=== PATIENT | female | born 1955 | race Two or more races ===

== ENCOUNTER 2018-02-05 03:12 | Emergency (ER) | payer OTHER, MEDICAID ==
[~2018-02-05] VITALS: Ht 160 cm; Wt 59.0 kg
[2018-02-05 05:27] LABS: Basophils # (auto) 0 uL; Basophils % (auto) 0.2 % (0.0-2.0); Eosinophils # (auto) 0 uL; Hematocrit 47.6 % (36.0-46.0); Hemoglobin 16.2 g/dL (12.2-16.2); Lymphocytes # (auto) 1.5 uL; Lymphocytes % (auto) 14.5 % (10.0-50.0); Mean Corpuscular Hemoglobin 31.1 pg (28.0-32.0); Mean Corpuscular Volume 91.5 fL (80.0-100.0); Monocytes # (auto) 0.6 uL; Monocytes % (auto) 5.7 % (0.0-12.0); Neutrophils # (auto) 8.4 uL; Neutrophils % (auto) 79.6 % (37.0-80.0); Platelet Count (auto) 316 10^3/uL (140-450); Red Cell Distribution Width 14.1 % (11.8-14.3); White Blood Cell 10.6 10^3/uL (4.4-10.8)
[2018-02-05 05:41] LABS: Acetaminophen < 2.0 ug/mL (10-30); Albumin 4.6 g/dL (3.4-5.0); Anion Gap 11 (5-15); Aspartate Aminotransferase 25 U/L (15-37); BUN/Creatinine Ratio 15.6; Blood Alcohol < 3.0 mg/dL (0-5); Blood Urea Nitrogen 17 mg/dL (7-18); Calcium 9.4 mg/dL (8.5-10.1); Carbon Dioxide 23 mmol/L (21-32); Chloride 105 mmol/L (98-107); GFR African American 65 mL/min; GFR Non-African American 54 mL/min; Glucose 134 mg/dL (74-106); Magnesium 2.7 mg/dL (1.6-2.6); Potassium 3.2 mmol/L (3.5-5.1); Salicylate < 1.7 mg/dL (2.8-20.0); Sodium 139 mmol/L (136-145)
[2018-02-05 05:44] LABS: Alanine Aminotransferase 27 U/L (13-56); Alkaline Phosphatase 85 U/L (45-117); Bilirubin, Total 0.6 mg/dL (0.2-1.0); Total Protein 8.6 g/dL (6.4-8.2)
[2018-02-05 08:29] LABS: Alcohol, Urine < 3.0 mg/dL (0-5); Amphetamine Screen, Urine NEGATIVE (NEGATIVE); Barbiturate Scree,Urine NEGATIVE (NEGATIVE); Benzodiazephine Screen, Urine POSITIVE (NEGATIVE); Cannabinoid Screen, Urine NEGATIVE (NEGATIVE); Cocaine Screen, Urine NEGATIVE (NEGATIVE); Opiate Scree,Urine NEGATIVE (NEGATIVE); Phencyclidine Screen, Urine NEGATIVE (NEGATIVE)
[2018-02-05 08:37] LABS: Urine Bacteria NONE SEEN /hpf (None Seen); Urine Blood 1+ /uL (Negative); Urine Hyaline Cast MANY /lpf (0 - 2); Urine Mucus MANY (None Seen); Urine Specific Gravity 1.018 (1.001-1.035); Urine WBC 15 /hpf (0 - 5)
[2018-02-05] MEDS ORDERED: NITROFURANTOIN (MONO) 100 mg CAP PO ONE (11:00)
[2018-02-06] MEDS ORDERED: amLODIPine BESYLATE 5 MG TAB PO SCH ×2 (10:00→10:15)
[2018-02-06] MEDS ORDERED: amLODIPine BESYLATE 5 MG TAB ONE (10:11)
[2018-02-06] MEDS: ALPRAZolam 0.5 MG TAB PO PRN ×2 (10:20→15:37)
[2018-02-06] MEDS ORDERED: cloNIDine HCL 0.1 MG TAB ONE (13:44)
[2018-02-06] MEDS ORDERED: cloNIDine HCL 0.1 MG TAB PO ONE (13:45)
[2018-02-06] MEDS ORDERED: POTASSIUM CHL 10% (20 MEQ/15ML) 15ml ORAL SOLN PO ONE (16:30)
[2018-02-06] MEDS ORDERED: NITROFURANTOIN (MONO) 100 mg CAP PO ONE (16:30)
[2018-02-06] MEDS ORDERED: LISINOPRIL 20 MG TAB PO ONE (16:30)
[2018-02-06 19:33] VITALS: BP 131/84
== END 2018-02-06 19:51 | disposition short-term general hospital (02) ==
LOC: EDUNIT# 03:12 → EDBD 03:12 → ER 03:15
DX: F20.9 Schizophrenia, unspecified (principal); F32.9 Major depressive disorder, single episode, unspecified; N39.0 Urinary tract infection, site not specified; E87.6 Hypokalemia; F29 Unspecified psychosis not due to a substance or known physiological condition; I10 Essential (primary) hypertension; Z59.0 Homelessness
CPT/HCPCS: 36415; 71046; 80053; 80307; 80320; 80329; 81001; 82962; 83735; 85025; 93005

== ENCOUNTER 2018-06-20 00:59 | Observation (INO) | payer OTHER, MEDICAID ==
[~2018-06-20] VITALS: Ht 172.7 cm; Wt 64.9 kg
[2018-06-20 02:10] LABS: Basophils # (auto) 0 uL; Basophils % (auto) 0.5 % (0.0-2.0); Eosinophils # (auto) 0 uL; Eosinophils % (auto) 0.5 % (0.0-7.0); Hematocrit 43.1 % (36.0-46.0); Hemoglobin 14.5 g/dL (12.2-16.2); Lymphocytes # (auto) 1.7 uL; Lymphocytes % (auto) 25.5 % (10.0-50.0); Mean Corpuscular Hemoglobin 30.1 pg (28.0-32.0); Mean Corpuscular Hgb Conc. 33.8 g/dL (32.0-36.0); Mean Corpuscular Volume 89.1 fL (80.0-100.0); Monocytes # (auto) 0.6 uL; Monocytes % (auto) 8.2 % (0.0-12.0); Neutrophils # (auto) 4.4 uL; Neutrophils % (auto) 65.3 % (37.0-80.0); Platelet Count (auto) 220 10^3/uL (140-450); Red Blood Cells 4.83 10^6/uL (4.0-5.20); Red Cell Distribution Width 13.1 % (11.8-14.3); White Blood Cell 6.7 10^3/uL (4.4-10.8)
[2018-06-20 02:27] LABS: Albumin 3.7 g/dL (3.4-5.0); Amylase 31 U/L (25-115); Anion Gap 11 (5-15); BUN/Creatinine Ratio 9.4; Blood Urea Nitrogen 6 mg/dL (7-18); Calcium 7.9 mg/dL (8.5-10.1); Carbon Dioxide 23 mmol/L (21-32); Chloride 107 mmol/L (98-107); GFR African American 120 mL/min; GFR Non-African American 99 mL/min; Glucose 98 mg/dL (74-106); Lipase 144 U/L (73-393); Magnesium 2.1 mg/dL (1.6-2.6); Potassium 3.2 mmol/L (3.5-5.1); Sodium 141 mmol/L (136-145)
[2018-06-20] MEDS ORDERED: SODIUM CHLORIDE 0.9% 500 ML IV ONE (02:30)
[2018-06-20] MEDS ORDERED: NALBUPHINE HCL 10 MG/1ml INJECTION IV ONE (02:30)
[2018-06-20] MEDS ORDERED: ONDANSETRON HCL 4 MG/2 ML VIAL IV ONE (02:30)
[2018-06-20 02:32] LABS: Alanine Aminotransferase 19 U/L (13-56); Alkaline Phosphatase 66 U/L (45-117); Aspartate Aminotransferase 19 U/L (15-37); Bilirubin, Total 0.8 mg/dL (0.2-1.0)
[2018-06-20 06:19] LABS: Urine WBC None Seen /hpf (0 - 5)
[2018-06-20 06:24] LABS: Urine Bacteria FEW /hpf (None Seen); Urine Blood TRACE /uL (Negative)
[2018-06-20 07:53] VITALS: BP 157/89
[2018-06-20] MEDS ORDERED: POTASSIUM EFFERVESENT TAB 25 MEQ PO ONE (08:15)
== END 2018-06-20 08:44 | disposition home or self-care (01) | DRG 392 ==
LOC: EDBD 00:59 → EDSEX 00:59 → ER 00:59 → OVERFLOW 01:00 → ER 08:44
PROVIDERS: ADMIT Emergency Medicine; ATTEND Emergency Medicine
DX: R10.13 Epigastric pain (principal); K59.00 Constipation, unspecified; E87.6 Hypokalemia; I10 Essential (primary) hypertension; E78.5 Hyperlipidemia, unspecified; F32.9 Major depressive disorder, single episode, unspecified; E11.9 Type 2 diabetes mellitus without complications
CPT/HCPCS: 36415; 74176; 80053; 81001; 82150; 83690; 83735; 84484; 85025; 93005; 96361; 96374; 96375; 99285; G0378; J2300; J2405; J7040

== ENCOUNTER 2018-07-31 20:31 | Observation (INO) | payer MEDICAID, OTHER ==
[~2018-07-31] VITALS: Ht 160 cm; Wt 59.0 kg
[2018-07-31] MEDS: SODIUM CHLORIDE 0.9% 1,000 ML IV ONE (21:06)
[2018-07-31 21:33] LABS: Basophils # (auto) 0 uL; Basophils % (auto) 0.3 % (0.0-2.0); Eosinophils # (auto) 0 uL; Eosinophils % (auto) 0.2 % (0.0-7.0); Hematocrit 43.2 % (36.0-46.0); Hemoglobin 14.6 g/dL (12.2-16.2); Lymphocytes # (auto) 1.9 uL; Lymphocytes % (auto) 22.8 % (10.0-50.0); Mean Corpuscular Hemoglobin 30.3 pg (28.0-32.0); Mean Corpuscular Hgb Conc. 33.9 g/dL (32.0-36.0); Mean Corpuscular Volume 89.4 fL (80.0-100.0); Monocytes # (auto) 0.6 uL; Monocytes % (auto) 7.2 % (0.0-12.0); Neutrophils # (auto) 5.9 uL; Neutrophils % (auto) 69.5 % (37.0-80.0); Nucleated Red Blood Cells % 0.1 %; Platelet Count (auto) 258 10^3/uL (140-450); Red Blood Cells 4.84 10^6/uL (4.0-5.20); Red Cell Distribution Width 13.2 % (11.8-14.3); White Blood Cell 8.4 10^3/uL (4.4-10.8)
[2018-07-31 21:55] LABS: INR 1.15 (0.9-1.15); Partial Thromboplastin Time 23.9 sec (23.78-33.04); Prothrombin Time 12.2 sec (9.27-12.13)
[2018-07-31 21:57] LABS: Albumin 4.1 g/dL (3.4-5.0); Calcium 8.8 mg/dL (8.5-10.1)
[2018-07-31 22:00] LABS: Bilirubin, Total 0.8 mg/dL (0.2-1.0); Total Protein 7.5 g/dL (6.4-8.2)
[2018-07-31 22:03] LABS: Potassium 2.9 mmol/L (3.5-5.1)
[2018-07-31] MEDS: ALPRAZolam 0.5 MG TAB PO ONE (22:07)
[2018-07-31 22:08] LABS: Blood Alcohol < 3.0 mg/dL (0-5)
[2018-07-31] MEDS ORDERED: POTASSIUM CHL 20MEQ/100ML 100 ML IV SCH (22:30)
[2018-07-31] MEDS: POTASSIUM CHL 20MEQ/100ML 100 ML IV ONE (22:35)
[2018-07-31] MEDS: POTASSIUM CHL 20 Meq TABLET PO ONE ×2 (22:45→22:46)
[2018-07-31 23:41] LABS: Urine Bacteria FEW /hpf (None Seen); Urine Blood Negative /uL (Negative); Urine Specific Gravity 1.005 (1.001-1.035); Urine WBC 3 /hpf (0 - 5)
[2018-07-31 23:48] LABS: Alcohol, Urine < 3.0 mg/dL (0-5); Amphetamine Screen, Urine NEGATIVE (NEGATIVE); Barbiturate Scree,Urine NEGATIVE (NEGATIVE); Benzodiazephine Screen, Urine NEGATIVE (NEGATIVE); Cannabinoid Screen, Urine NEGATIVE (NEGATIVE); Cocaine Screen, Urine NEGATIVE (NEGATIVE); Opiate Scree,Urine NEGATIVE (NEGATIVE); Phencyclidine Screen, Urine NEGATIVE (NEGATIVE)
[2018-07-31 23:54] VITALS: BP 142/87
== END 2018-08-01 02:28 | disposition home or self-care (01) | DRG 776 ==
LOC: EDBD 20:31 → ER 20:33 → OVERFLOW 20:34 → ER 08-01 02:27
PROVIDERS: ADMIT Family Medicine; ATTEND Family Medicine
DX: F13.239 Sedative, hypnotic or anxiolytic dependence with withdrawal, unspecified (principal); E78.5 Hyperlipidemia, unspecified; E87.6 Hypokalemia; F32.9 Major depressive disorder, single episode, unspecified; F41.9 Anxiety disorder, unspecified; I10 Essential (primary) hypertension
CPT/HCPCS: 36415; 71045; 80053; 80307; 80320; 80329; 81001; 83735; 84132; 84484; 85025; 85610; 85730; 93005; 99285; G0378; J3480

== ENCOUNTER 2018-08-04 21:03 | Emergency (ER) | payer MEDICARE, MEDICAID ==
[~2018-08-04] VITALS: Ht 167.6 cm; Wt 63.5 kg
[2018-08-04 21:21] VITALS: BP 160/98
[2018-08-04] MEDS: LORazepam 2MG/ML-1ML VIAL IM ONE (22:12)
== END 2018-08-05 00:33 | disposition home or self-care (01) ==
LOC: EDBD 21:03 → ER 21:13
DX: F41.9 Anxiety disorder, unspecified (principal); F31.9 Bipolar disorder, unspecified; F20.9 Schizophrenia, unspecified; I10 Essential (primary) hypertension; E78.5 Hyperlipidemia, unspecified
CPT/HCPCS: 96372; 99284; J2060

== ENCOUNTER 2018-08-13 16:20 | Emergency (ER) | payer OTHER, MEDICAID ==
[~2018-08-13] VITALS: Ht 160 cm; Wt 61.2 kg
[2018-08-13 20:21] LABS: Basophils # (auto) 0 uL; Basophils % (auto) 0.5 % (0.0-2.0); Eosinophils # (auto) 0 uL; Eosinophils % (auto) 0.2 % (0.0-7.0); Hematocrit 40.8 % (36.0-46.0); Hemoglobin 13.8 g/dL (12.2-16.2); Lymphocytes # (auto) 2.2 uL; Lymphocytes % (auto) 21.2 % (10.0-50.0); Mean Corpuscular Hemoglobin 30.6 pg (28.0-32.0); Mean Corpuscular Hgb Conc. 33.8 g/dL (32.0-36.0); Mean Corpuscular Volume 90.6 fL (80.0-100.0); Monocytes # (auto) 0.8 uL; Monocytes % (auto) 7.4 % (0.0-12.0); Neutrophils # (auto) 7.3 uL; Neutrophils % (auto) 70.7 % (37.0-80.0); Nucleated Red Blood Cells % 0.1 %; Platelet Count (auto) 281 10^3/uL (140-450); Red Cell Distribution Width 13.3 % (11.8-14.3); White Blood Cell 10.3 10^3/uL (4.4-10.8)
[2018-08-13] MEDS ORDERED: LORazepam 2MG/ML-1ML VIAL IV ONE (20:30)
[2018-08-13 20:36] LABS: Albumin 3.9 g/dL (3.4-5.0); BUN/Creatinine Ratio 11.6; Calcium 8.6 mg/dL (8.5-10.1); Potassium 3.6 mmol/L (3.5-5.1)
[2018-08-13 20:39] LABS: Bilirubin, Total 0.7 mg/dL (0.2-1.0); Total Protein 6.8 g/dL (6.4-8.2)
[2018-08-13 22:39] LABS: Urine Bacteria FEW /hpf (None Seen); Urine Blood Negative /uL (Negative); Urine Mucus FEW (None Seen); Urine Specific Gravity 1.006 (1.001-1.035); Urine WBC <1 /hpf (0 - 5)
[2018-08-13 23:02] LABS: Alcohol, Urine < 3.0 mg/dL (0-5); Amphetamine Screen, Urine NEGATIVE (NEGATIVE); Barbiturate Scree,Urine NEGATIVE (NEGATIVE); Benzodiazephine Screen, Urine POSITIVE (NEGATIVE); Cannabinoid Screen, Urine NEGATIVE (NEGATIVE); Cocaine Screen, Urine NEGATIVE (NEGATIVE); Opiate Scree,Urine NEGATIVE (NEGATIVE); Phencyclidine Screen, Urine NEGATIVE (NEGATIVE)
[2018-08-14 00:59] VITALS: BP 151/88
== END 2018-08-14 02:00 | disposition home or self-care (01) ==
LOC: ER 16:21
DX: F41.9 Anxiety disorder, unspecified (principal); R53.1 Weakness; E78.5 Hyperlipidemia, unspecified; I10 Essential (primary) hypertension; Z91.041 Radiographic dye allergy status
CPT/HCPCS: 36415; 80053; 80307; 81001; 82962; 85025; 93005; 96374; 99285; J2060